=== PATIENT | female | born 1950 | race Caucasian/White ===

== ENCOUNTER → 2020-04-27 | Outpatient (CLI) | payer MEDICARE ==
[~2020-04-27] MED LIST: CALTRATE600 MG MT; Z.0.ACTONEL35 MG PO; Z.0.ATENOLOL50 MG PO; Z.0.DEXILANT60 MG MT; Z.0.LEVAQUIN500 MG MT; Z.0.LISINOPRIL10 MG PO; Z.0.METRONIDAZOLE500 MT; Z.0.PROMETHAZINE HC2 MT; Z.0.TRIBENZOR 20-51 MT; Z.0.XANAX0.25 MG PO; Z.0.ZYRTEC10 M3 PO; [UNRECOGNIZED DRUG - OTHER] MT
== END ==
LOC: MAMMO 12:24
PROVIDERS: ATTEND Family Medicine
DX: Z13.820 Encounter for screening for osteoporosis (principal); Z12.31 Encounter for screening mammogram for malignant neoplasm of breast; M85.88 Other specified disorders of bone density and structure, other site
CPT/HCPCS: 77067; 77080

== ENCOUNTER → 2021-05-02 | Outpatient (CLI) | payer MEDICARE | LOC: MAMMO 09:08 | PROVIDERS: ATTEND Obstetrics & Gynecology | DX: Z12.31 Encounter for screening mammogram for malignant neoplasm of breast (principal) | CPT/HCPCS: 77067 ==

== ENCOUNTER 2021-06-13 10:06 | Observation (INO) | payer MEDICARE ==
[~2021-06-13] VITALS: Ht 157.5 cm; Wt 63.0 kg
[~2021-06-13 10:06] MED LIST changes: -ATENOLOL50 MG PO; -BENADRYL25 M1 PO; -FAMOTIDINE20 MG PO; -LEVOTHYROXINE50 MCG PO; -VITAMIN B-121000 MC2 PO; -VITAMIN D3 COM1 EACH PO
[2021-06-13] MEDS ORDERED: FAMOTIDINE20 MG PO (10:26)
[2021-06-13] MEDS ORDERED: BENADRYL25 M1 PO (10:26)
[2021-06-13] MEDS ORDERED: LEVOTHYROXINE50 MCG PO (10:26)
[2021-06-13] MEDS ORDERED: VITAMIN D3 COM1 EACH PO (10:26)
[2021-06-13] MEDS ORDERED: ATENOLOL50 MG PO (10:26)
[2021-06-13] MEDS ORDERED: VITAMIN B-121000 MC2 PO (10:26)
[2021-06-13] MEDS ORDERED: ASPIRIN 81 MG CHEW TAB PO ONE (10:45)
[2021-06-13 10:52] LABS: BASOPHILS % 0.4 % (0.0-1.0); EOSINOPHILS # (AUTO) 0.1 (0.0-0.4); EOSINOPHILS % 0.6 % (0.0-6.0); HEMOGLOBIN 15.7 g/dL (12.0-16.0); LYMPHOCYTES # (AUTO) 1.5 (1.0-3.2); LYMPHOCYTES % 17.4 % (18.0-39.1); MEAN CORPUSCULAR HEMOGLOBIN 31.7 pg (28-32); MEAN CORPUSCULAR HGB CONC 32.7 g/dL (31-35); MONOCYTES # (AUTO) 0.8 (0.2-0.8); MONOCYTES % 9.1 % (4.4-11.3); NEUTROPHILS # (AUTO) 6.2 (2.1-6.9); NEUTROPHILS % 72.3 % (38.7-80.0); PLATELET COUNT 241 x10e3/uL (140-360); RED BLOOD COUNT 4.95 x10e6/uL (3.6-5.1); RED CELL DISTRIBUTION WIDTH 12.4 % (11.7-14.4)
[2021-06-13 11:05] LABS: INR 0.9; PROTHROMBIN TIME 12.9 seconds (11.9-14.5)
[2021-06-13 11:06] LABS: PARTIAL THROMBOPLASTIN TIME 28.6 seconds (23.8-35.5)
[2021-06-13 11:12] LABS: ALANINE AMINOTRANSFERASE 15 IU/L (0-55); ALBUMIN/GLOBULIN RATIO 0.8 (0.8-2.0); ALKALINE PHOSPHATASE 84 IU/L (40-150); ANION GAP 14.3 mmol/L (8-16); BLOOD UREA NITROGEN 11 mg/dL (7-26); BUN/CREATININE RATIO 11 (6-25); CALCIUM 9.7 mg/dL (8.4-10.2); CARBON DIOXIDE 27 mmol/L (22-29); CHLORIDE 101 mmol/L (98-107); CREATINE KINASE 73 IU/L (29-168); EST GLOMERULAR FILTRATION RATE 54 ML/MIN (60-); GLUCOSE 93 mg/dL (74-118); POTASSIUM 5.3 mmol/L (3.5-5.1); SODIUM 137 mmol/L (136-145)
[2021-06-13] MEDS ORDERED: SODIUM CHLORIDE 0.9% 1000ML 1,000 ML IV STA (11:31)
[2021-06-13] MEDS ORDERED: ONDANSETRON HCL INJ 2MG/ML 2ML 2 MG/ML VIAL IV PRN (11:45)
[2021-06-13] MEDS ORDERED: SODIUM CHLORIDE 0.9% 1000ML 1,000 ML IV ONE (11:45)
[2021-06-13] MEDS: ENOXAPARIN SOD INJ 60 MG/0.6 ML SYR SC SCH ×2 (11:50→23:06)
[2021-06-13 13:38] VITALS: BP 141/69
[2021-06-13] MEDS ORDERED: SODIUM CHLORIDE 0.9% 50ML 0 ML ONE (14:33)
[2021-06-13] MEDS ORDERED: IOPAMIDOL 370 MG/ML 200 ML INFUS..BTL INJ ONE (14:33)
[2021-06-13] MEDS ORDERED: SODIUM CHLORIDE 0.9% 1000ML 1,000 ML ONE (15:01)
[2021-06-13 15:08] VITALS: BP 141/69
[2021-06-13 15:10] VITALS: BP 141/69
[2021-06-13] MEDS ORDERED: PREDNISONE 20 MG TAB PO ONE (18:00)
[2021-06-13 19:12] LABS: INR 0.92; PROTHROMBIN TIME 13.1 seconds (11.9-14.5)
[2021-06-13 19:27] LABS: CREATINE KINASE MB 0.7 ng/mL (0-5.0)
[2021-06-13 20:32] VITALS: BP 137/61
[2021-06-13 21:30] VITALS: BP 137/61
[2021-06-14 00:47] VITALS: BP 124/72
[2021-06-14 05:11] VITALS: BP 140/74
[2021-06-14 05:53] LABS: BASOPHILS % 0.1 % (0.0-1.0); HEMATOCRIT 44.3 % (34.2-44.1); HEMOGLOBIN 14.4 g/dL (12.0-16.0); LYMPHOCYTES # (AUTO) 0.8 (1.0-3.2); LYMPHOCYTES % 9.1 % (18.0-39.1); MEAN CORPUSCULAR HEMOGLOBIN 31.2 pg (28-32); MEAN CORPUSCULAR HGB CONC 32.5 g/dL (31-35); MEAN CORPUSCULAR VOLUME 96.1 fL (81-99); MONOCYTES # (AUTO) 0.1 (0.2-0.8); MONOCYTES % 1.1 % (4.4-11.3); NEUTROPHILS # (AUTO) 7.8 (2.1-6.9); PLATELET COUNT 239 x10e3/uL (140-360); RED BLOOD COUNT 4.61 x10e6/uL (3.6-5.1); RED CELL DISTRIBUTION WIDTH 11.9 % (11.7-14.4)
[2021-06-14] MEDS ORDERED: PREDNISONE 20 MG TAB PO ONE ×2 (06:00)
[2021-06-14] MEDS ORDERED: DIPHENHYDRAMINE HCL 25 MG CAP PO ONE (06:00)
[2021-06-14] MEDS ORDERED: LEVOTHYROXINE SODIUM 50 MCG TAB PO ONE (06:15)
[2021-06-14 06:53] LABS: ALBUMIN 3.1 g/dL (3.5-5.0); ALBUMIN/GLOBULIN RATIO 0.8 (0.8-2.0); ANION GAP 13.1 mmol/L (8-16); CREATININE, SERUM 0.82 mg/dL (0.57-1.11); POTASSIUM 4.1 mmol/L (3.5-5.1)
[2021-06-14 07:23] LABS: CREATINE KINASE 71 IU/L (29-168)
[2021-06-14 08:00] VITALS: BP 129/62
[2021-06-14 09:35] VITALS: BP 129/62
[2021-06-14] MEDS ORDERED: IOPAMIDOL 370 MG/ML 200 ML INFUS..BTL INJ ONE (11:33)
[2021-06-14] MEDS ORDERED: SODIUM CHLORIDE 0.9% 50ML 50 ML ONE (11:33)
[2021-06-14 12:00] VITALS: BP 138/76
[2021-06-14] MEDS: ENOXAPARIN SOD INJ 60 MG/0.6 ML SYR SC SCH (12:25)
[2021-06-14 16:00] VITALS: BP 132/74
[2021-06-14] MEDS ORDERED: ONDANSETRON HCL 4 MG ORAL DISINTEGRATING TAB PO PRN (17:15)
== END 2021-06-14 16:50 | disposition home or self-care (01) ==
LOC: ER 10:15 → ERHOLD 11:41 → INTOOBSV 11:41 → MED/SURG3 13:35
PROVIDERS: ADMIT Family Medicine; ATTEND Family Medicine
DX: T81.72XA Complication of vein following a procedure, not elsewhere classified, initial encounter (principal); I82.462 Acute embolism and thrombosis of left calf muscular vein; I10 Essential (primary) hypertension; E03.9 Hypothyroidism, unspecified; Z88.5 Allergy status to narcotic agent; Z88.0 Allergy status to penicillin; Z88.8 Allergy status to other drugs, medicaments and biological substances; Z91.041 Radiographic dye allergy status; K21.9 Gastro-esophageal reflux disease without esophagitis; Z20.822 Contact with and (suspected) exposure to COVID-19
CPT/HCPCS: 36415 ×2; 71260; 80053 ×2; 82550 ×2; 82553 ×2; 84484 ×2; 85025 ×2; 85610; 85730; 96360; 99284; G0378 ×2; J1650 ×2; J7030; J7512 ×2; Q9967; U0002

== ENCOUNTER → 2021-06-13 | Outpatient (CLI) | payer MEDICARE ==
[~2021-06-13] MED LIST changes: +ATENOLOL50 MG PO; +BENADRYL25 M1 PO; +FAMOTIDINE20 MG PO; +LEVOTHYROXINE50 MCG PO; +VITAMIN B-121000 MC2 PO; +VITAMIN D3 COM1 EACH PO
== END ==
LOC: RAD 09:19
PROVIDERS: ATTEND Podiatrist Foot & Ankle Surgery
DX: R60.9 Edema, unspecified (principal); I82.462 Acute embolism and thrombosis of left calf muscular vein; M79.662 Pain in left lower leg
CPT/HCPCS: 93971

== ENCOUNTER → 2022-05-14 | Outpatient (CLI) | payer MEDICARE ==
[~2022-05-14] MED LIST changes: +ATENOLOL50 MG PO; +BENADRYL25 M1 PO; +FAMOTIDINE20 MG PO; +LEVOTHYROXINE50 MCG PO; +VITAMIN B-121000 MC2 PO; +VITAMIN D3 COM1 EACH PO
== END ==
LOC: MAMMO 08:50
PROVIDERS: ATTEND Obstetrics & Gynecology
DX: Z12.31 Encounter for screening mammogram for malignant neoplasm of breast (principal)
CPT/HCPCS: 77067

== ENCOUNTER → 2022-06-21 | Outpatient (CLI) | payer MEDICARE | LOC: DX 09:48 | PROVIDERS: ATTEND Family Medicine | DX: M81.8 Other osteoporosis without current pathological fracture (principal) | CPT/HCPCS: 77080 ==

== ENCOUNTER → 2023-07-02 | Outpatient (REF) | payer MEDICARE | LOC: MAMMO 08:04 | PROVIDERS: ATTEND Family Medicine | DX: Z12.31 Encounter for screening mammogram for malignant neoplasm of breast (principal) | CPT/HCPCS: 77067 ==

== ENCOUNTER → 2024-05-31 | Outpatient (REF) | payer MEDICARE | LOC: MAMMO 12:42 | PROVIDERS: ATTEND Obstetrics & Gynecology | DX: M81.0 Age-related osteoporosis without current pathological fracture (principal) | CPT/HCPCS: 77080 ==

== ENCOUNTER → 2024-07-06 | Outpatient (REF) | payer MEDICARE | LOC: MAMMO 08:07 | PROVIDERS: ATTEND Obstetrics & Gynecology | DX: Z12.31 Encounter for screening mammogram for malignant neoplasm of breast (principal) | CPT/HCPCS: 77067 ==